=== PATIENT | female | born 1930 | race Two or more races ===

== ENCOUNTER 2020-02-08 18:24 | Inpatient (IN) | payer MEDICARE, OTHER ==
[~2020-02-08] VITALS: Ht 167.6 cm; Wt 74.8 kg
[2020-02-09 00:15] VITALS: BP_SYST 182; BP_SYST 184; BP_DIAS 69; BP_DIAS 76
--- NOTE | 2020-02-09 00:30 | NUR ---
transfer fr [facility] ; there she had blood culture done; rocephine 2 gm given IV and Covid 19 came positive; no paper works from "assisted living" reported by [employer];
[2020-02-09] MEDS ORDERED: ONDANSETRON 4 MG/2 ML VIAL IV PRN (01:15)
[2020-02-09] MEDS ORDERED: ACETAMINOPHEN 650 MG SUPP.RECT RC PRN (01:15)
--- NOTE | 2020-02-09 01:28 | NUR ---
left message at pt's daughter for home meds; a/w call back
[2020-02-09] MEDS: AZITHROMYCIN IV 500 MG in IV DEXTROSE 5% 250 ML IV SCH (02:00)
[2020-02-09] MEDS ORDERED: ALBUTEROL SULFATE 2.5 MG/ 0.5 ML NEBU NEB PRN (02:00)
[2020-02-09] MEDS ORDERED: AZITHROMYCIN 500 MG VIAL IV ONE (02:12)
[2020-02-09] MEDS: CLONIDINE HCL 0.1 MG TABLET PO PRN ×2 (02:30→06:01)
[2020-02-09] MEDS ORDERED: POTASSIUM CHLORIDE 10 MEQ TAB.PRT.SR ONE (02:55)
[2020-02-09] MEDS ORDERED: POTASSIUM CHLORIDE 20 MEQ TAB.PRT.SR ONE (02:56)
[2020-02-09 04:45] VITALS: BP 142/64
[2020-02-09 05:39] LABS: BASOPHILS % (AUTO) 0.3 % (0.0-2.0); EOSINOPHILS % (AUTO) 0.1 % (0.0-7.0); HEMATOCRIT 42.8 % (31.2-41.9); HEMOGLOBIN 14.3 g/dL (10.9-14.3); LYMPHOCYTES % (AUTO) 17.1 % (20.5-51.5); MEAN CORPUSCULAR HEMOGLOBIN 28.8 uug (24.7-32.8); MEAN CORPUSCULAR HGB CONC 34 g/dL (32.3-35.6); MEAN CORPUSCULAR VOLUME 85.8 fL (75.5-95.3); MONOCYTES # (AUTO) 0.6 K/uL (2.0-10.0); MONOCYTES % (AUTO) 10.2 % (0.0-11.0); NEUTROPHILS % (AUTO) 72.3 % (38.5-71.5); PLATELET COUNT (AUTO) 133 K/uL (179-408); RED BLOOD CELL COUNT(AUTO) 4.98 MIL/uL (3.63-4.92); WHITE BLOOD COUNT (AUTO) 5.6 K/uL (3.8-11.8)
[2020-02-09 05:42] LABS: BILIRUBIN,TOTAL 0.8 mg/dL (0.2-1.0); CREATININE 1.1 mg/dL (0.6-1.3); POTASSIUM 3.2 mmol/L (3.5-5.1); TOTAL PROTEIN, SERUM 7.5 g/dL (6.4-8.2)
[2020-02-09] MEDS ORDERED: POTASSIUM CHLORIDE 20 MEQ TAB.PRT.SR PO ONE (06:15)
--- NOTE | 2020-02-09 07:28 | NUR ---
left message again to pts daughter phone for more info; endorsed to Nurse Maritza regarding home meds info.
[2020-02-09] MEDS: DEXAMETHASONE 4 MG TABLET PO SCH (09:31)
[2020-02-09] MEDS: ENOXAPARIN SODIUM 40 MG/0.4 ML DISP.SYRIN SQ SCH (09:32)
--- NOTE | 2020-02-09 10:00 | NUR ---
Pt stopped ABG due to pain, refused to continue, refused ABG..
--- NOTE | 2020-02-09 11:12 | NUR ---
WOUND CARE CONSULT: REVIEWED CHART, NURSING DOCUMENTATION AND PHOTOS WHICH INDICATE SACRAL INTACT DEEP TISSUE INJURY, PRESENT ON ADMISSION. RECOMMENDATIONS MADE FOR SKIN PROTECTION AND WOUND CARE. DISCUSSED WITH NURSING STAFF. MD IN AGREEMENT WITH PLAN OF CARE.
[2020-02-09 12:00] VITALS: BP 102/46
[2020-02-09] MEDS ORDERED: REMDESIVIR (INVESTIGATIONAL) 200 MG in IV NORMAL SALINE 210 ML IV ONE (14:00)
[2020-02-09] MEDS ORDERED: ATOR40TA PO (15:26)
[2020-02-09] MEDS ORDERED: VITA15LO PO (15:26)
[2020-02-09] MEDS ORDERED: DONE10TA44 PO (15:26)
[2020-02-09] MEDS ORDERED: DICL100G16 TP (15:26)
[2020-02-09] MEDS ORDERED: MIRA50TA PO (15:26)
[2020-02-09] MEDS ORDERED: LORA10TA7 PO (15:26)
[2020-02-09] MEDS ORDERED: ESCI10TA55 PO (15:26)
[2020-02-09] MEDS ORDERED: CARB15DR3 OP (15:26)
[2020-02-09] MEDS ORDERED: EZET10TA15 PO (15:26)
[2020-02-09] MEDS ORDERED: LIDO30AD10 TD (15:26)
[2020-02-09] MEDS ORDERED: IBUP-1953 PO (15:26)
[2020-02-09] MEDS ORDERED: TIMO5SOL11 EACHEYE (15:26)
[2020-02-09] MEDS ORDERED: CARV12.52 PO (15:26)
[2020-02-09] MEDS ORDERED: ACET-2154 PO (15:26)
[2020-02-09] MEDS ORDERED: OXYB10TA30 PO (15:26)
[2020-02-09] MEDS ORDERED: [UNRECOGNIZED DRUG - CODE] PO (15:26)
[2020-02-09] MEDS ORDERED: ASPI81TA31 PO (15:26)
[2020-02-09] MEDS ORDERED: PANT40TA2 PO (15:26)
[2020-02-09 16:00] VITALS: BP 104/54
[2020-02-09 16:53] VITALS: BP 117/60
--- NOTE | 2020-02-09 20:00 | NUR ---
RECEIVED PT. AWAKE, VERBALLY RESPONSIVE W/ PERIODS OF CONFUSION. ON O2 @ 4LNC W/ O2 SAT OF 94%. HEP LOCK INTACT & PATENT ON RFA. NOT IN ANY DISTRESS.
[2020-02-09 20:18] VITALS: BP 107/62
--- NOTE | 2020-02-09 22:00 | NUR ---
HS CARE DONE. KEPT HOB ELEVATED AFTER REPOSITIONED.
[2020-02-10 00:12] VITALS: BP 123/61
[2020-02-10] MEDS: AZITHROMYCIN IV 500 MG in IV DEXTROSE 5% 250 ML IV SCH (01:26)
--- NOTE | 2020-02-10 06:00 | NUR ---
KEPT PT DRY & CLEAN. REPOSITIONED.
[2020-02-10 06:18] VITALS: BP 145/69
[2020-02-10 06:47] LABS: BASOPHILS % (AUTO) 0.1 % (0.0-2.0); HEMATOCRIT 39.6 % (31.2-41.9); HEMOGLOBIN 13.2 g/dL (10.9-14.3); LYMPHOCYTES # (AUTO) 0.9 K/uL (20.0-40.0); LYMPHOCYTES % (AUTO) 15.4 % (20.5-51.5); MEAN CORPUSCULAR HEMOGLOBIN 28.3 uug (24.7-32.8); MEAN CORPUSCULAR HGB CONC 33 g/dL (32.3-35.6); MONOCYTES # (AUTO) 0.7 K/uL (2.0-10.0); MONOCYTES % (AUTO) 11.3 % (0.0-11.0); NEUTROPHILS # (AUTO) 4.5 K/uL (1.8-8.9); NEUTROPHILS % (AUTO) 73.2 % (38.5-71.5); PLATELET COUNT (AUTO) 145 K/uL (179-408); RED BLOOD CELL COUNT(AUTO) 4.66 MIL/uL (3.63-4.92); WHITE BLOOD COUNT (AUTO) 6.1 K/uL (3.8-11.8)
[2020-02-10 07:16] LABS: BILIRUBIN,DIRECT 0.2 mg/dL (0.0-0.2); BILIRUBIN,TOTAL 0.5 mg/dL (0.2-1.0); CREATININE 1.2 mg/dL (0.6-1.3); MAGNESIUM 2.2 mg/dL (1.8-2.4); PHOSPHOROUS 3.6 mg/dL (2.5-4.9); POTASSIUM 3.5 mmol/L (3.5-5.1); TOTAL PROTEIN, SERUM 6.5 g/dL (6.4-8.2)
[2020-02-10] MEDS: DEXAMETHASONE 4 MG TABLET PO SCH (08:27)
[2020-02-10] MEDS: ENOXAPARIN SODIUM 40 MG/0.4 ML DISP.SYRIN SQ SCH (08:28)
[2020-02-10 08:41] VITALS: BP 140/54
--- NOTE | 2020-02-10 09:42 | NUR ---
Pt awake and alert with periods of confusion. On 4L O2 and saturation at 95%. Pt was made comfortable in bed and is not in distress. Call light within reach. Will continue to monitor.
[2020-02-10 14:20] VITALS: BP 141/61
[2020-02-10] MEDS: REMDESIVIR (INVESTIGATIONAL) 100 MG in IV NORMAL SALINE 230 ML IV SCH (14:20)
--- NOTE | 2020-02-10 15:20 | NUR ---
Remdesevir completed. No ASE noted. Afebrile. No episode of Hypotension. Will continue to monitor.
--- NOTE | 2020-02-10 18:07 | NUR ---
Pt is stable and lying in bed with no complaints of pain. Pt has periods of confusion. She is on oxygen at 4L via nasal canula with saturation at 95%. Remdesivir IV was given and completed, no adverse reaction reaction was had -- blood pressure was WNL and she was afebrile. Pt made comfortable, call light within reach, and not in distress. Will endorse to oncoming nurse.
[2020-02-10 20:00] VITALS: BP 123/59
[2020-02-10] MEDS: ACETAMINOPHEN 325 MG TABLET PO PRN (20:47)
[2020-02-11] VITALS (9 sets, daily range): BP systolic 103–162; BP diastolic 51–80
[2020-02-11] MEDS: AZITHROMYCIN IV 500 MG in IV DEXTROSE 5% 250 ML IV SCH (01:42)
--- NOTE | 2020-02-11 06:11 | NUR ---
PT SLEPT INTERMITTENTLY. PT SHOWS NO SIGNS OF ACUTE DISTRESS. IV INTACT. PT GIVEN TYLENOL AT 2046H FOR PT IS MOANING AND STATING SHE'S IN PAIN. . PT CONDITIONED IMPROVED AFTER AN HOUR. PT AFEBRILE. PT TURNED AND REPOSITIONED Q2H. PRESCRIBED MEDICATION GIVEN AND PT TOLERATED IT WELL. PT REDIRECTABLE. PT FORGETFUL BUT PLEASANT. SAFETY AND COMFORT PROVIDED. ALL NEEDS ARE MET. WILL ENDORSE TO INCOMING NURSE FOR CONTINUITY OF CARE.
--- NOTE | 2020-02-11 08:15 | NUR ---
Pt in bed awake AOx1, O2 decreased to 3L from 4L, saturation of 94-95% with no SOB or distress at this time, coughing out scant amount of thick yellow sputum. On tele SB. IV on right FA 20g flushed and patent. Bed locked in lowest position with siderails 2x up. DVT pumps in place. Call light and phone within reach
[2020-02-11] MEDS: DEXAMETHASONE 4 MG TABLET PO SCH (09:27)
[2020-02-11] MEDS: ENOXAPARIN SODIUM 40 MG/0.4 ML DISP.SYRIN SQ SCH (09:28)
[2020-02-11 09:58] LABS: BASOPHILS % (AUTO) 0.1 % (0.0-2.0); HEMATOCRIT 40.8 % (31.2-41.9); HEMOGLOBIN 13.8 g/dL (10.9-14.3); LYMPHOCYTES % (AUTO) 14.9 % (20.5-51.5); MEAN CORPUSCULAR HEMOGLOBIN 28.7 uug (24.7-32.8); MEAN CORPUSCULAR HGB CONC 34 g/dL (32.3-35.6); MEAN CORPUSCULAR VOLUME 84.7 fL (75.5-95.3); MONOCYTES # (AUTO) 0.4 K/uL (2.0-10.0); MONOCYTES % (AUTO) 5.4 % (0.0-11.0); NEUTROPHILS # (AUTO) 5.3 K/uL (1.8-8.9); NEUTROPHILS % (AUTO) 79.6 % (38.5-71.5); PLATELET COUNT (AUTO) 165 K/uL (179-408); RED BLOOD CELL COUNT(AUTO) 4.82 MIL/uL (3.63-4.92); WHITE BLOOD COUNT (AUTO) 6.6 K/uL (3.8-11.8)
[2020-02-11 10:30] LABS: BILIRUBIN,DIRECT 0.2 mg/dL (0.0-0.2); BILIRUBIN,TOTAL 0.4 mg/dL (0.2-1.0); CREATININE 1.1 mg/dL (0.6-1.3); POTASSIUM 3.1 mmol/L (3.5-5.1); TOTAL PROTEIN, SERUM 6.5 g/dL (6.4-8.2)
[2020-02-11 10:34] LABS: MAGNESIUM 2.1 mg/dL (1.8-2.4)
[2020-02-11] MEDS: REMDESIVIR (INVESTIGATIONAL) 100 MG in IV NORMAL SALINE 230 ML IV SCH (13:49)
--- NOTE | 2020-02-11 15:15 | NUR ---
Remdesevir completed. No side effect noted, afebrile. No episode of Hypotension. Will continue to monitor.
[2020-02-11] MEDS: AZITHROMYCIN 250 MG TABLET PO SCH (20:24)
[2020-02-11] MEDS: CLONIDINE HCL 0.1 MG TABLET PO PRN (21:41)
[2020-02-12 00:50] VITALS: BP 165/71
[2020-02-12] MEDS: CLONIDINE HCL 0.1 MG TABLET PO PRN (05:52)
--- NOTE | 2020-02-12 06:00 | NUR ---
Pt slept throughout the night, would seldom yell that "she needs to go back to her room." Reoriented patient. On O2 @ 3L with no SOB or distress at this time. On tele SB running low to 44 when asleep. Aspiration and safety precaution maintained. No other complaints at this time
[2020-02-12 07:03] VITALS: BP 151/80
[2020-02-12 07:03] LABS: BASOPHILS % (AUTO) 0.1 % (0.0-2.0); HEMATOCRIT 39.2 % (31.2-41.9); HEMOGLOBIN 13.3 g/dL (10.9-14.3); LYMPHOCYTES # (AUTO) 0.8 K/uL (20.0-40.0); LYMPHOCYTES % (AUTO) 11.4 % (20.5-51.5); MEAN CORPUSCULAR HEMOGLOBIN 28.6 uug (24.7-32.8); MEAN CORPUSCULAR HGB CONC 34 g/dL (32.3-35.6); MEAN CORPUSCULAR VOLUME 84.4 fL (75.5-95.3); MONOCYTES # (AUTO) 0.8 K/uL (2.0-10.0); MONOCYTES % (AUTO) 10.9 % (0.0-11.0); NEUTROPHILS # (AUTO) 5.7 K/uL (1.8-8.9); NEUTROPHILS % (AUTO) 77.6 % (38.5-71.5); PLATELET COUNT (AUTO) 181 K/uL (179-408); RED BLOOD CELL COUNT(AUTO) 4.65 MIL/uL (3.63-4.92); WHITE BLOOD COUNT (AUTO) 7.3 K/uL (3.8-11.8)
[2020-02-12 07:19] LABS: BILIRUBIN,DIRECT 0.1 mg/dL (0.0-0.2); BILIRUBIN,TOTAL 0.4 mg/dL (0.2-1.0); CREATININE 0.8 mg/dL (0.6-1.3); MAGNESIUM 2.1 mg/dL (1.8-2.4); PHOSPHOROUS 2.9 mg/dL (2.5-4.9); POTASSIUM 3.3 mmol/L (3.5-5.1); TOTAL PROTEIN, SERUM 5.9 g/dL (6.4-8.2)
--- NOTE | 2020-02-12 08:00 | NUR ---
RECEIVED PATIENT AWAKE, ALERT AND ORIENTED TO SELF, ABLE TO FOLLOW COMMAND. ON 3 L O2, SATURATION WNL. SINUS SLICK ON MONITOR, ASYMPTOMATIC. IV ON RIGHT FA 20 G TKO, FLUSHING AND PATENT. NOTED ORDER FOR BLOOD CULTURE RESULT FROM [facility], CALLED [place] TO FOLLOW UP, RELEASE OF INFORMATION OFFICE IS CLOSE - WILL ENDORSE TO NEXT SHIFT TO FOLLOW UP TOMORROW. Addendum: 02/12/20 at 1356 by RUBEN CONTRERAS RN [facility] RELEASE OF MEDICAL INFORMATION OFFICE NUMBER: [phone]
[2020-02-12] MEDS ORDERED: POTASSIUM CHLORIDE 20 MEQ TAB.PRT.SR PO ONE (09:15)
[2020-02-12] MEDS: DEXAMETHASONE 4 MG TABLET PO SCH (09:51)
[2020-02-12] MEDS: ENOXAPARIN SODIUM 40 MG/0.4 ML DISP.SYRIN SQ SCH (09:53)
[2020-02-12] MEDS: ACETAMINOPHEN 325 MG TABLET PO PRN (09:56)
[2020-02-12 11:20] VITALS: BP 138/60
[2020-02-12] MEDS ORDERED: GUAIFENESIN SUGAR FREE 100 MG/5 ML UDC PO PRN (12:30)
[2020-02-12] MEDS ORDERED: IBUPROFEN 400 MG TABLET PO PRN (12:30)
[2020-02-12] MEDS ORDERED: [UNRECOGNIZED DRUG - OTHER] OP PRN (13:00)
[2020-02-12] MEDS: REMDESIVIR (INVESTIGATIONAL) 100 MG in IV NORMAL SALINE 230 ML IV SCH (13:18)
--- NOTE | 2020-02-12 14:00 | NUR ---
SEEN BY DR DIAZ AND DR ACOSTA FOR FOLLOW-UP SEE NOTES
[2020-02-12 15:20] VITALS: BP 140/73
--- NOTE | 2020-02-12 18:07 | NUR ---
CONTINUE WITH REMDESIVIR ORDERED PATIENT TOLERATED WELL. BLOOD PRESSURE AND HEART RATE CLOSELY MONITORED. SR/SB ON MONITOR
--- NOTE | 2020-02-12 20:00 | NUR ---
Patient resting in bed comfortably with HOB elevated on O2 inhalation of 3LPM via NC.On tele monitor.ALert with period of confusion.Re-orientation rendered. Denies SOB,no s/s of distress .IV site on Right forearm 20g intact.Compliant with medications.Proper PPE strictly observe for covid.Call light and belongings with in reach.continue safety measures.Will continue to monitor.
[2020-02-12] MEDS: AZITHROMYCIN 250 MG TABLET PO SCH (20:41)
[2020-02-12] MEDS: OXYBUTYNIN XL 5 MG TABSR PO SCH (20:42)
[2020-02-12] MEDS: ESCITALOPRAM OXALATE 10 MG TABLET PO SCH (20:42)
[2020-02-12] MEDS: ATORVASTATIN 40 MG TABLET PO SCH (20:42)
[2020-02-12] MEDS: CARVEDILOL 12.5 MG TABLET PO SCH (20:51)
[2020-02-13 07:14] LABS: BASOPHILS % (AUTO) 0.1 % (0.0-2.0); HEMATOCRIT 39.6 % (31.2-41.9); HEMOGLOBIN 13.2 g/dL (10.9-14.3); LYMPHOCYTES # (AUTO) 0.8 K/uL (20.0-40.0); LYMPHOCYTES % (AUTO) 14.6 % (20.5-51.5); MEAN CORPUSCULAR HEMOGLOBIN 28.4 uug (24.7-32.8); MEAN CORPUSCULAR HGB CONC 34 g/dL (32.3-35.6); MONOCYTES # (AUTO) 0.8 K/uL (2.0-10.0); MONOCYTES % (AUTO) 13.6 % (0.0-11.0); NEUTROPHILS # (AUTO) 4.1 K/uL (1.8-8.9); NEUTROPHILS % (AUTO) 71.7 % (38.5-71.5); PLATELET COUNT (AUTO) 181 K/uL (179-408); RED BLOOD CELL COUNT(AUTO) 4.66 MIL/uL (3.63-4.92); WHITE BLOOD COUNT (AUTO) 5.7 K/uL (3.8-11.8)
[2020-02-13 07:31] LABS: BILIRUBIN,DIRECT 0.1 mg/dL (0.0-0.2); BILIRUBIN,TOTAL 0.5 mg/dL (0.2-1.0); CREATININE 0.9 mg/dL (0.6-1.3); MAGNESIUM 2.1 mg/dL (1.8-2.4); PHOSPHOROUS 3.2 mg/dL (2.5-4.9); POTASSIUM 3.9 mmol/L (3.5-5.1)
[2020-02-13] MEDS: EZETIMIBE 10 MG TABLET PO SCH (08:36)
[2020-02-13] MEDS: ASPIRIN 81 MG TAB.CHEW PO SCH (08:36)
[2020-02-13] MEDS: DONEPEZIL 10 MG TABLET PO SCH (08:36)
[2020-02-13] MEDS: ESCITALOPRAM OXALATE 10 MG TABLET PO SCH ×2 (08:36→20:45)
[2020-02-13] MEDS: CARVEDILOL 12.5 MG TABLET PO SCH ×2 (08:37→21:38)
[2020-02-13] MEDS: LORATADINE 10 MG TABLET PO SCH (08:37)
[2020-02-13] MEDS: DEXAMETHASONE 4 MG TABLET PO SCH (08:38)
[2020-02-13] MEDS: LIDOCAINE 5% PATCH TD SCH (08:38)
[2020-02-13] MEDS: TIMOLOL MALEATE XE 0.5% OPHT 5 ML BOTTLE EACHEYE SCH (08:38)
[2020-02-13] MEDS: ENOXAPARIN SODIUM 40 MG/0.4 ML DISP.SYRIN SQ SCH (08:40)
[2020-02-13] MEDS: PANTOPRAZOLE SODIUM 40 MG TABLET.DR PO SCH (08:47)
[2020-02-13 08:48] VITALS: BP 160/80
[2020-02-13] MEDS ORDERED: Medication Not On Formulary EA (Mirabegron (Myrbetriq) 50 MG) PO SCH (09:00)
--- NOTE | 2020-02-13 09:49 | NUR ---
PATIENT SEEN AND EXAMINED BY DR OSHEA WITH NEW ORDERS AND NOTED
[2020-02-13 12:38] VITALS: BP 124/53
[2020-02-13] MEDS: REMDESIVIR (INVESTIGATIONAL) 100 MG in IV NORMAL SALINE 230 ML IV SCH (13:55)
--- NOTE | 2020-02-13 13:55 | NUR ---
REMAIN ON REZEMDEVIR ORDERED WITH NO ADVERSE EFFECTS AT THIS TIME.IV SITE ON RIGHT FOREARM INFILTERATED RESTARTED TO HER WRIST GAUGE 20 WITH ONE ATTEMPT PATIENT IS SLEEPING ON AND OFF ALERT WHEN AWAKE BUT IS FORGETFUL
--- NOTE | 2020-02-13 14:17 | NUR ---
CALL RECEIVED FROM PATIENTS DAUGHTER STATED THAT PQATIENT WAS SUPPOSED TO GET A PHYSICAL THERAPY EVAL TODAY BUT I CHECKED SHE HAS NO ORDERED SO THE PROVIDER WAS NOTIFIED WITH ORDER AT THIS TIME.
--- NOTE | 2020-02-13 15:01 | NUR ---
REMDESIVIR COMPLETED ORDERED WITH NO ADVERSE EFFECT NOTED AT THIS TIME WILL CONTINUE TO OBSERVE.
[2020-02-13 15:47] VITALS: BP 147/63
[2020-02-13 20:16] VITALS: BP 104/68
[2020-02-13] MEDS: OXYBUTYNIN XL 5 MG TABSR PO SCH (20:44)
[2020-02-13] MEDS: ATORVASTATIN 40 MG TABLET PO SCH (20:44)
[2020-02-14 00:30] VITALS: BP 110/68
[2020-02-14 04:51] VITALS: BP 159/92
[2020-02-14] MEDS: CLONIDINE HCL 0.1 MG TABLET PO PRN (06:13)
--- NOTE | 2020-02-14 06:19 | NUR ---
Patient slept well with period of confusion .Denies SOB or pain.Compliant with medication.Continue on O2 inhalation at 3 LPM via NC.Change and repositioned patient .PPE strictly observed for covid.All needs anticipated and met accordingly.
--- NOTE | 2020-02-14 07:30 | NUR ---
Received patient resting in bed with no sign of distress noted. Patient reports no pain at this time. IV is in left wrist 20 gauge hep lock. Mepilex noted on sacral area. Patient has been sinus sharmin on monitor. Safety measures are in place, with call light and belongings within reach. Will continue to monitor.
[2020-02-14 07:52] LABS: BASOPHILS % (AUTO) 0.3 % (0.0-2.0); HEMATOCRIT 39.5 % (31.2-41.9); HEMOGLOBIN 13.2 g/dL (10.9-14.3); LYMPHOCYTES # (AUTO) 0.7 K/uL (20.0-40.0); LYMPHOCYTES % (AUTO) 8.2 % (20.5-51.5); MEAN CORPUSCULAR HEMOGLOBIN 28.4 uug (24.7-32.8); MEAN CORPUSCULAR HGB CONC 33 g/dL (32.3-35.6); MEAN CORPUSCULAR VOLUME 85.1 fL (75.5-95.3); MONOCYTES # (AUTO) 0.7 K/uL (2.0-10.0); MONOCYTES % (AUTO) 9.3 % (0.0-11.0); NEUTROPHILS # (AUTO) 6.5 K/uL (1.8-8.9); NEUTROPHILS % (AUTO) 82.2 % (38.5-71.5); PLATELET COUNT (AUTO) 216 K/uL (179-408); RED BLOOD CELL COUNT(AUTO) 4.64 MIL/uL (3.63-4.92); WHITE BLOOD COUNT (AUTO) 7.9 K/uL (3.8-11.8)
[2020-02-14 08:17] LABS: BILIRUBIN,DIRECT 0.2 mg/dL (0.0-0.2); BILIRUBIN,TOTAL 0.5 mg/dL (0.2-1.0); CREATININE 0.9 mg/dL (0.6-1.3); MAGNESIUM 2.2 mg/dL (1.8-2.4); PHOSPHOROUS 3.4 mg/dL (2.5-4.9)
[2020-02-14 08:20] VITALS: BP 176/82
[2020-02-14] MEDS: ASPIRIN 81 MG TAB.CHEW PO SCH ×2 (08:42→09:00)
[2020-02-14] MEDS: EZETIMIBE 10 MG TABLET PO SCH ×2 (08:42→09:00)
[2020-02-14] MEDS: LORATADINE 10 MG TABLET PO SCH ×2 (08:42→09:00)
[2020-02-14] MEDS: LIDOCAINE 5% PATCH TD SCH (08:42)
[2020-02-14] MEDS: DONEPEZIL 10 MG TABLET PO SCH ×2 (08:42→09:00)
[2020-02-14] MEDS: PANTOPRAZOLE SODIUM 40 MG TABLET.DR PO SCH ×2 (08:42→09:00)
[2020-02-14] MEDS: DEXAMETHASONE 4 MG TABLET PO SCH (08:43)
[2020-02-14] MEDS: CARVEDILOL 12.5 MG TABLET PO SCH ×3 (08:44→20:50)
[2020-02-14] MEDS: ENOXAPARIN SODIUM 40 MG/0.4 ML DISP.SYRIN SQ SCH (08:45)
[2020-02-14] MEDS: TIMOLOL MALEATE XE 0.5% OPHT 5 ML BOTTLE EACHEYE SCH ×2 (08:45→09:00)
[2020-02-14] MEDS: ESCITALOPRAM OXALATE 10 MG TABLET PO SCH ×3 (08:48→20:51)
[2020-02-14 11:20] VITALS: BP 125/60
--- NOTE | 2020-02-14 12:59 | NUR ---
WOUND CARE FOLLOW UP: REVIEWED CHART, NURSING DOCUMENTATION AND NEW PHOTO WHICH INDICATES SACRAL DEEP TISSUE INJURY NOW IN EVOLUTION, PRESENT ON ADMISSION. SPOKE WITH NURSING STAFF. RECOMMENDATIONS MADE AND DISCUSSED WITH NURSING STAFF FOR WOUND CARE AND SKIN PROTECTION. MD IN AGREEMENT WITH PLAN OF CARE.
--- NOTE | 2020-02-14 13:00 | NUR ---
Spoke with wound care nurse Whit, took new picture of wound and placed in chart. New orders to clean area, pat dry and apply oil emulsion dressing and then cover with foam Mepilex. Will continue to monitor.
[2020-02-14 15:04] VITALS: BP 125/50
--- NOTE | 2020-02-14 16:36 | NUR ---
Spoke with Emory from pharmacy he says continued home medication but the pharmacy doesn't have it in stock. He wants to know if we can contact the family to see if they can provide it. Will continue to monitor.
--- NOTE | 2020-02-14 18:32 | NUR ---
Patient is resting in bed, all medications given as ordered. No sign of distress noted at this time. Will endorse to the oncoming nurse the new orders for dressing and to follow up with family about the medications.
--- NOTE | 2020-02-14 19:30 | NUR ---
RECEIVED PT AWAKE, ALERT AND ORIENTEDX2. PT IN NO ACUTE DISTRESS. IV INTACT.SAFETY AND COMFORT PROVIDED. WILL CONTINUE TO MONITOR.
[2020-02-14 20:07] VITALS: BP 120/60
[2020-02-14] MEDS: OXYBUTYNIN XL 5 MG TABSR PO SCH (20:49)
[2020-02-14] MEDS: ATORVASTATIN 40 MG TABLET PO SCH (20:51)
[2020-02-15 00:24] VITALS: BP 115/68
[2020-02-15 04:00] VITALS: BP 130/58
--- NOTE | 2020-02-15 04:35 | NUR ---
RECEIVED PT AWAKE, ALERT AND ORIENTEDX2. PT IN NO ACUTE DISTRESS. IV INTACT.SAFETY AND COMFORT PROVIDED. WILL CONTINUE TO MONITOR. Addendum: 02/15/20 at 0508 by BARBARA PARKINSON RN WRONG TIME DOCUMENTATION SHOULD BE 1930H OF 02/14/20.
--- NOTE | 2020-02-15 06:18 | NUR ---
PT SLEPT INTERMITTENTLY. PT IN NO ACUTE DISTRESS. IV INTACT. PRESCRIBED MEDICATION GIVEN AND PT TOLERATED IT WELL. HER DAUGHTER CALLED AND TALKED WITH THE PT. STAFF ASSISTED THE PT WITH HER NEEDS AND SETTING UP THE IPAD AND IPHONE. PT TURNED AND REPOSITIONED Q2H. DRESSING CHANGED ON THE SACRUM. SAFETY AND COMFORT PROVIDED. ALL NEEDS ARE MET. WILL ENDORSE TO INCOMING NURSE FOR CONTINUITY OF CARE.
[2020-02-15 07:21] LABS: CREATININE 0.9 mg/dL (0.6-1.3); POTASSIUM 4.4 mmol/L (3.5-5.1)
[2020-02-15 07:42] LABS: BASOPHILS % (AUTO) 0.1 % (0.0-2.0); HEMATOCRIT 39.9 % (31.2-41.9); HEMOGLOBIN 13.4 g/dL (10.9-14.3); LYMPHOCYTES # (AUTO) 0.6 K/uL (20.0-40.0); LYMPHOCYTES % (AUTO) 6.5 % (20.5-51.5); MEAN CORPUSCULAR HEMOGLOBIN 28.4 uug (24.7-32.8); MEAN CORPUSCULAR HGB CONC 34 g/dL (32.3-35.6); MEAN CORPUSCULAR VOLUME 84.5 fL (75.5-95.3); MONOCYTES # (AUTO) 0.9 K/uL (2.0-10.0); MONOCYTES % (AUTO) 9.3 % (0.0-11.0); NEUTROPHILS # (AUTO) 8.3 K/uL (1.8-8.9); NEUTROPHILS % (AUTO) 84.1 % (38.5-71.5); PLATELET COUNT (AUTO) 249 K/uL (179-408); RED BLOOD CELL COUNT(AUTO) 4.72 MIL/uL (3.63-4.92); WHITE BLOOD COUNT (AUTO) 9.9 K/uL (3.8-11.8)
[2020-02-15] MEDS: ZINC SULFATE 220 MG CAPSULE PO SCH (08:46)
[2020-02-15] MEDS: ESCITALOPRAM OXALATE 10 MG TABLET PO SCH ×2 (08:46→21:02)
[2020-02-15] MEDS: LORATADINE 10 MG TABLET PO SCH (08:47)
[2020-02-15] MEDS: PANTOPRAZOLE SODIUM 40 MG TABLET.DR PO SCH (08:47)
[2020-02-15] MEDS: CARVEDILOL 12.5 MG TABLET PO SCH ×2 (08:47→21:00)
[2020-02-15] MEDS: ASCORBIC ACID 500 MG TABLET PO SCH (08:47)
[2020-02-15] MEDS: EZETIMIBE 10 MG TABLET PO SCH (08:47)
[2020-02-15] MEDS: DONEPEZIL 10 MG TABLET PO SCH (08:47)
[2020-02-15] MEDS: ASPIRIN 81 MG TAB.CHEW PO SCH (08:47)
[2020-02-15] MEDS: CHOLECALCIFEROL 400 UNITS TABLET PO SCH (08:48)
[2020-02-15] MEDS: DEXAMETHASONE 4 MG TABLET PO SCH (08:48)
[2020-02-15] MEDS: LIDOCAINE 5% PATCH TD SCH (08:48)
[2020-02-15] MEDS: ENOXAPARIN SODIUM 40 MG/0.4 ML DISP.SYRIN SQ SCH (08:50)
[2020-02-15] MEDS: TIMOLOL MALEATE XE 0.5% OPHT 5 ML BOTTLE EACHEYE SCH (08:50)
[2020-02-15 10:49] VITALS: BP 103/87
[2020-02-15] MEDS ORDERED: METH4TAB21 PO (12:03)
--- NOTE | 2020-02-15 13:52 | NUR ---
Patient awake, AOx2 with periods of confusion. Compliant with medications. Patient will be discharge to [facility] today as per child welfare caseworker and [employer] Aneesh. Patient seen and examined by MD Rollins with no new order. Patient continue with oxygen via nasal cannula at 2-3LPM with oxygen saturation at 95%. not in distress. will continue monitor
[2020-02-15 15:51] VITALS: BP 112/51
--- NOTE | 2020-02-15 18:15 | NUR ---
Patient [facility] daughter requested. ISAIAS Melendrez and MD Rollins aware.
[2020-02-15 20:14] VITALS: BP 132/80
[2020-02-15] MEDS: ATORVASTATIN 40 MG TABLET PO SCH (21:02)
[2020-02-15] MEDS: OXYBUTYNIN XL 5 MG TABSR PO SCH (21:02)
[2020-02-16 00:08] VITALS: BP 152/74
[2020-02-16 04:15] VITALS: BP 212/86
[2020-02-16] MEDS: CLONIDINE HCL 0.1 MG TABLET PO PRN (04:52)
[2020-02-16] MEDS: ACETAMINOPHEN 325 MG TABLET PO PRN (04:52)
[2020-02-16 06:30] VITALS: BP 123/72
--- NOTE | 2020-02-16 07:30 | NUR ---
Patient in bed, awake, and verbally responsive. On Oxygen at 3L via nasal canula, sat 95%. No complain of Pain or discomfort. Proper PPE strictly Observed for covid 19 (+). Kept clean and comfortable. Will continue to monitor.
[2020-02-16] MEDS: ASPIRIN 81 MG TAB.CHEW PO SCH (08:46)
[2020-02-16] MEDS: EZETIMIBE 10 MG TABLET PO SCH (08:46)
[2020-02-16] MEDS: CHOLECALCIFEROL 400 UNITS TABLET PO SCH (08:46)
[2020-02-16] MEDS: ZINC SULFATE 220 MG CAPSULE PO SCH (08:46)
[2020-02-16] MEDS: LORATADINE 10 MG TABLET PO SCH (08:46)
[2020-02-16] MEDS: ESCITALOPRAM OXALATE 10 MG TABLET PO SCH (08:46)
[2020-02-16] MEDS: DEXAMETHASONE 4 MG TABLET PO SCH (08:46)
[2020-02-16] MEDS: ASCORBIC ACID 500 MG TABLET PO SCH (08:46)
[2020-02-16] MEDS: PANTOPRAZOLE SODIUM 40 MG TABLET.DR PO SCH (08:46)
[2020-02-16] MEDS: LIDOCAINE 5% PATCH TD SCH (08:48)
[2020-02-16] MEDS: TIMOLOL MALEATE XE 0.5% OPHT 5 ML BOTTLE EACHEYE SCH (08:55)
[2020-02-16] MEDS: CARVEDILOL 12.5 MG TABLET PO SCH (09:00)
[2020-02-16] MEDS: ENOXAPARIN SODIUM 40 MG/0.4 ML DISP.SYRIN SQ SCH (09:21)
[2020-02-16] MEDS: DONEPEZIL 10 MG TABLET PO SCH (09:38)
--- NOTE | 2020-02-16 11:30 | NUR ---
Patient in bed,awake. On Oxygen at 3L via Nasal canula, sat 95-96%. No complain of Pain or discomfort. Patient with order to Be discharge today at [facility]. called and gave report to Mann PICKARD. Discharge Instructions given to patient and receiving Nurse. All belongings was checked and sent with patient. Removed IV site, wrist band and classroom monitor. patient was picked up by 3 EMT in stable condition.
== END 2020-02-16 11:30 | DRG 177 ==
LOC: TELE3 23:20
PROVIDERS: ADMIT Student in an Organized Health Care Education/Training Program; ATTEND Nurse Practitioner Acute Care
DX: U07.1 COVID-19 (principal); J12.89 Other viral pneumonia; J96.01 Acute respiratory failure with hypoxia; G93.41 Metabolic encephalopathy; E44.0 Moderate protein-calorie malnutrition; E87.6 Hypokalemia; R19.7 Diarrhea, unspecified; I10 Essential (primary) hypertension; E66.3 Overweight; Z68.26 Body mass index [BMI] 26.0-26.9, adult; E88.09 Other disorders of plasma-protein metabolism, not elsewhere classified; D69.6 Thrombocytopenia, unspecified
CPT/HCPCS: 36415; 71045; 83605; 83615; 83735; 84100; 85025; 85610; 85730; 86140; A4663; G0378; J0456; J1650; J3490; J3590; J7030; J7050; J7060; J8540; Q0144

== ENCOUNTER 2020-02-22 11:10 | Inpatient (IN) | payer MEDICARE, OTHER ==
[~2020-02-22] VITALS: Ht 167.6 cm; Wt 82.1 kg
[~2020-02-22 11:10] MED LIST: ACET-2154 PO; ASPI81TA31 PO; ATOR40TA PO; CARB15DR3 OP; CARV12.52 PO; DICL100G16 TP; DONE10TA44 PO; ESCI10TA55 PO; EZET10TA15 PO; IBUP-1953 PO; LIDO30AD10 TD; LORA10TA7 PO; METH4TAB21 PO; MIRA50TA PO; OXYB10TA30 PO; PANT40TA2 PO; TIMO5SOL11 EACHEYE; VITA15LO PO; [UNRECOGNIZED DRUG - CODE] PO
--- NOTE | 2020-02-22 11:20 | NUR ---
Dr Osborn at the bedside for MSE.
[2020-02-22 11:52] LABS: BASOPHILS # (AUTO) 0.1 K/uL (0.0-8.0); BASOPHILS % (AUTO) 0.5 % (0.0-2.0); EOSINOPHILS % (AUTO) 0.1 % (0.0-7.0); HEMATOCRIT 47.2 % (31.2-41.9); HEMOGLOBIN 15.9 g/dL (10.9-14.3); LYMPHOCYTES # (AUTO) 0.7 K/uL (20.0-40.0); LYMPHOCYTES % (AUTO) 3.2 % (20.5-51.5); MEAN CORPUSCULAR HEMOGLOBIN 28.3 uug (24.7-32.8); MEAN CORPUSCULAR HGB CONC 34 g/dL (32.3-35.6); MEAN CORPUSCULAR VOLUME 83.8 fL (75.5-95.3); MONOCYTES # (AUTO) 1.2 K/uL (2.0-10.0); MONOCYTES % (AUTO) 5.2 % (0.0-11.0); NEUTROPHILS # (AUTO) 20.8 K/uL (1.8-8.9); PLATELET COUNT (AUTO) 335 K/uL (179-408); RED BLOOD CELL COUNT(AUTO) 5.63 MIL/uL (3.63-4.92); WHITE BLOOD COUNT (AUTO) 22.8 K/uL (3.8-11.8)
[2020-02-22 12:13] LABS: CREATININE 0.8 mg/dL (0.6-1.3); POTASSIUM 4.1 mmol/L (3.5-5.1)
[2020-02-22] MEDS ORDERED: FUROSEMIDE 20 MG/2 ML VIAL IV ONE ×2 (12:30→17:00)
[2020-02-22] MEDS ORDERED: ALBUTEROL SULFATE 8 GM HFA.AER.AD IH PRN (12:30)
[2020-02-22] MEDS ORDERED: MEROPENEM 1,000 MG in IV NORMAL SALINE 100 ML IV ONE (12:30)
[2020-02-22 12:31] LABS: BILIRUBIN,TOTAL 0.9 mg/dL (0.2-1.0); TOTAL PROTEIN, SERUM 7.6 g/dL (6.4-8.2)
[2020-02-22] MEDS ORDERED: FUROSEMIDE 20 MG/2 ML VIAL ONE ×2 (12:38→16:54)
[2020-02-22] MEDS ORDERED: MEROPENEM 1GM/NS 100ML IVPB **ER PYXIS ONLY IV ONE (12:39)
[2020-02-22] MEDS ORDERED: LORAZEPAM 2 MG/1 ML VIAL IV ONE ×2 (13:00→17:00)
--- NOTE | 2020-02-22 13:06 | NUR ---
Patient is resting comfortably in bed with eyes closed, continue monitoring.
[2020-02-22] MEDS ORDERED: LORAZEPAM 2 MG/1 ML VIAL ONE ×2 (13:13→17:02)
[2020-02-22] MEDS ORDERED: ACET-2154 PO (13:20)
[2020-02-22] MEDS ORDERED: FURO-152 PO (13:20)
[2020-02-22] MEDS ORDERED: MAGN400O6 PO (13:20)
[2020-02-22] MEDS ORDERED: CELE200C PO (13:20)
[2020-02-22] MEDS ORDERED: BISA10SU12 RC (13:20)
[2020-02-22] MEDS ORDERED: NA P133E RC (13:20)
--- NOTE | 2020-02-22 14:09 | NUR ---
Paged Dr Cotto for admit.
[2020-02-22] MEDS ORDERED: ENOXAPARIN SODIUM 80 MG/0.8 ML DISP.SYRIN SQ ONE ×2 (14:15→14:18)
--- NOTE | 2020-02-22 14:22 | NUR ---
Dr Cotto spoke to Dr Osborn for Tele admit.
[2020-02-22] MEDS ORDERED: methylPREDNISolone SOD SUCC 125 MG/2 ML VIAL ONE (16:51)
[2020-02-22] MEDS ORDERED: PANTOPRAZOLE SODIUM 40 MG VIAL ONE (16:51)
[2020-02-22] MEDS ORDERED: ALBUTEROL SULFATE 2.5 MG/3 ML NEBU ONE (16:59)
[2020-02-22] MEDS ORDERED: methylPREDNISolone SOD SUCC 125 MG/2 ML VIAL IV ONE (17:00)
[2020-02-22] MEDS ORDERED: PANTOPRAZOLE SODIUM IV 40 MG in IV DEXTROSE 5% 100 ML IV ONE (17:00)
[2020-02-22] MEDS ORDERED: ALBUTEROL SULFATE 2.5 MG/3 ML NEBU NEB ONE (17:00)
--- NOTE | 2020-02-22 17:06 | NUR ---
LAURA Fletcher spoke to Dr Montelongo for ICU admit.
--- NOTE | 2020-02-22 17:10 | NUR ---
Pt placed on BIPAP by RT. Setting is 12/5 RR 10, FIO2 100%. Pt is tolorating BIPAP well so far.
[2020-02-22 17:11] LABS: ABG BASE EXCESS 1.3 mmol/L; ABG PCO2 46.2 mmHg (35.0-45.0); ABG PH 7.384 (7.350-7.450); ABG SITE LEFT FEMORAL; ABG TOTAL HEMOGLOBIN 16.7 G/dL (12.0-16.0); COHb 1.3 % (0.5-1.5); MetHb 0.3 % (0.0-1.5); O2Hb 91.7 % (94.0-97.0)
--- NOTE | 2020-02-22 17:21 | NUR ---
PT PLACED ON BIPAP WITH SETTINGS IPAP 12, EPAP5, RATE 12, AND FIO2 100%. PT TOLERATING BIPAP FINE WITHOUT DISTRESS.
--- NOTE | 2020-02-22 17:46 | NUR ---
Patient is resting comfortably in bed with eyes closed, BIPAP in place w/ same setting.
--- NOTE | 2020-02-22 17:47 | NUR ---
Dr Rollins in ER to see pt.
[2020-02-22 18:17] LABS: ABG BASE EXCESS -0.2 mmol/L; ABG PCO2 47.9 mmHg (35.0-45.0); ABG PH 7.353 (7.350-7.450); ABG PO2 128.7 mmHg (75.0-100.0); ABG SITE RIGHT RADIAL; ABG TOTAL HEMOGLOBIN 16.8 G/dL (12.0-16.0); MetHb 0.1 % (0.0-1.5); O2Hb 97.2 % (94.0-97.0); VENT MODE BIPAP
--- NOTE | 2020-02-22 18:25 | NUR ---
POST ABG DONE ON BIPAP SETTINGS OF 04/14/RATE 100%. RESULTS REPORTED TO DR OSHEA. NO CHANGES IN THERAPY AT THE MOMENT. WILL CONTINUE TO MONITOR
--- NOTE | 2020-02-22 18:29 | NUR ---
Dr Montelongo at the bedside for MSE.
--- NOTE | 2020-02-22 19:33 | NUR ---
[place]soff report given to [facility] CCU RN.
[2020-02-22 20:28] VITALS: BP 147/91
--- NOTE | 2020-02-22 20:28 | NUR ---
[facility] DX OF RESP. FAILURE, COVID 19-+, VERBALLY NONRESPONSIVE, OPEN HER EYES TO VERBAL STIMULI. ON BIPAP I-15/E-5, RATE-16 FIO2- 100%.W/ O2 SAT OF 94%. HEP LOCK INTACT & PATENT ON R HAND.REPOSITIONED ON HER SIDE W/ HOB ELEVATED.
--- NOTE | 2020-02-22 20:40 | NUR ---
INSERTED [place] CATH FR#16 W/O DIFFICULTY W/ CLOUDY SEGUN URINE. CALLED DR Jaime MARQUEZ FOR ADM ORDER.
[2020-02-22 21:00] VITALS: BP 106/66
[2020-02-22 21:30] VITALS: BP 114/69
[2020-02-22] MEDS ORDERED: HYDROCODONE/APAP 5-325MG TABLET PO PRN (21:45)
[2020-02-22] MEDS ORDERED: ONDANSETRON 4 MG/2 ML VIAL IV PRN (21:45)
[2020-02-22] MEDS ORDERED: Z GUARD REMEDY PASTE 57 GM TUBE TOP PRN (21:45)
[2020-02-22] MEDS ORDERED: ZOLPIDEM 5 MG TABLET PO PRN (21:45)
[2020-02-22 22:00] VITALS: BP 123/71
[2020-02-22] MEDS ORDERED: MEROPENEM 1 G in IV NORMAL SALINE 100 ML IV SCH (22:00)
[2020-02-22] MEDS ORDERED: NORMAL SALINE FLUSH 10 ML DISP.SYRIN IV PRN (22:00)
[2020-02-22] MEDS: NORMAL SALINE FLUSH 10 ML DISP.SYRIN IV SCH (22:09)
[2020-02-22 23:00] VITALS: BP 111/67
[2020-02-22] MEDS ORDERED: MEROPENEM 1 G VIAL IV ONE (23:06)
[2020-02-22] MEDS ORDERED: VANCOMYCIN IV 1,500 MG in IV DEXTROSE 5% 500 ML IV ONE (23:45)
[2020-02-23] VITALS (46 sets, daily range): BP systolic 109–222; BP diastolic 57–129
[2020-02-23] MEDS ORDERED: MEROPENEM 1 G in IV NORMAL SALINE 100 ML IV SCH ×2
[2020-02-23] MEDS ORDERED: MEROPENEM 1 G in IV NORMAL SALINE 100 ML IV ONE ×2
[2020-02-23] MEDS: methylPREDNISolone SOD SUCC 40 MG/ML VIAL IV SCH ×3 (00:06→18:25)
[2020-02-23] MEDS ORDERED: VANCOMYCIN 1000 MG VIAL ONE (00:30)
[2020-02-23] MEDS ORDERED: VANCOMYCIN HCL 500 MG VIAL ONE (00:30)
[2020-02-23] MEDS ORDERED: ENOXAPARIN SODIUM 80 MG/0.8 ML DISP.SYRIN SQ SCH (02:00)
--- NOTE | 2020-02-23 02:07 | NUR ---
PT HAS BEEN ON CONT BI/PAP WITH MED. MASK ALL SHIFT 7P/7A WITH SETTINGS. 04/14 , RATE 12, 100%, THEN NEW ORDERS 22/09, RATE 16 , 100%, TITRATE FIO2 TO KEEP ABOVE 92%, SO PT NOW ON 90%, SAT 93-94%M PT WAKES UP AT TIMES, THEN GOES BACK TO SLEEP, ABG AT 0700, Juliocesar CORDOVAP Addendum: 02/23/20 at 0210 by MELLISSA LLOYD RT Amended: Links added.
--- NOTE | 2020-02-23 04:30 | NUR ---
AM CARE DONE. REPOSITIONED W/ HOB ELEVATED.
[2020-02-23 05:06] LABS: BASOPHILS % (AUTO) 0.1 % (0.0-2.0); HEMATOCRIT 45.2 % (31.2-41.9); HEMOGLOBIN 15.1 g/dL (10.9-14.3); LYMPHOCYTES # (AUTO) 0.7 K/uL (20.0-40.0); LYMPHOCYTES % (AUTO) 3.9 % (20.5-51.5); MEAN CORPUSCULAR HEMOGLOBIN 28.2 uug (24.7-32.8); MEAN CORPUSCULAR HGB CONC 34 g/dL (32.3-35.6); MEAN CORPUSCULAR VOLUME 84.3 fL (75.5-95.3); MONOCYTES # (AUTO) 0.6 K/uL (2.0-10.0); MONOCYTES % (AUTO) 3.1 % (0.0-11.0); NEUTROPHILS # (AUTO) 16.9 K/uL (1.8-8.9); NEUTROPHILS % (AUTO) 92.9 % (38.5-71.5); PLATELET COUNT (AUTO) 287 K/uL (179-408); RED BLOOD CELL COUNT(AUTO) 5.37 MIL/uL (3.63-4.92); WHITE BLOOD COUNT (AUTO) 18.3 K/uL (3.8-11.8)
[2020-02-23 05:29] LABS: CREATININE 1.3 mg/dL (0.6-1.3); MAGNESIUM 2.2 mg/dL (1.8-2.4); POTASSIUM 3.5 mmol/L (3.5-5.1)
--- NOTE | 2020-02-23 05:30 | NUR ---
CXR DONE. NOT IN ANY DISTRESS.
[2020-02-23] MEDS: NORMAL SALINE FLUSH 10 ML DISP.SYRIN IV SCH ×3 (05:40→22:01)
--- NOTE | 2020-02-23 07:15 | NUR ---
Received report from awake overnight counselor nurse, patient in bed asleep on bipap, sinus rhythm on the monitor. Appiah intact and draining. IV to left wrist. No distress noted at this time. Bed in low position, side rails upx2. Bed alarm on.
[2020-02-23 07:47] LABS: ABG BASE EXCESS 2.4 mmol/L; ABG HCO3 26.4 mmol/L; ABG PH 7.448 (7.350-7.450); ABG PO2 79.1 mmHg (75.0-100.0); ABG SITE RIGHT RADIAL; ABG TOTAL HEMOGLOBIN 16.1 G/dL (12.0-16.0); COHb 1.1 % (0.5-1.5); MetHb 0.1 % (0.0-1.5); O2Hb 95.1 % (94.0-97.0); VENT MODE BIPAP - 15/5
[2020-02-23] MEDS ORDERED: DEXTROSE 50% 50 ML DISP.SYRIN IV PRN (08:30)
[2020-02-23] MEDS: DONEPEZIL 10 MG TABLET PO SCH (09:00)
[2020-02-23] MEDS ORDERED: LIDOCAINE 5% PATCH TD SCH (09:00)
[2020-02-23] MEDS: LIDOCAINE 5% PATCH TD SCH (09:14)
[2020-02-23] MEDS: TIMOLOL MALEATE XE 0.5% OPHT 5 ML BOTTLE EACHEYE SCH (09:14)
[2020-02-23] MEDS: IV NS 1000 ML 1,000 ML IV PRN ×2 (09:15→19:32)
[2020-02-23] MEDS: MEROPENEM 1 G in IV NORMAL SALINE 100 ML IV SCH ×2 (11:12→23:57)
[2020-02-23] MEDS: BLOOD SUGAR DIAGNOSTIC 1 EACH STRIP VI SCH ×3 (11:16→23:55)
[2020-02-23] MEDS: INSULIN REGULAR, HUMAN 300 UNIT/3 ML VIAL SQ PRN ×2 (11:33→23:56)
--- NOTE | 2020-02-23 11:40 | NUR ---
Contacted Dr. Montelongo to inform him that the patient is to have a CTA chest and to clear her for contrast administration and to inform him that patients blood pressure has been increasing. Patient is cleared for CTA chest but no orders received for BP medication.
--- NOTE | 2020-02-23 15:08 | NUR ---
Contacted Dr. Montelongo for BP medication as it is now 203/108. Nitropaste ordered 1 inch cw Q6 but Dr. Jamison started patient on Cardene drip as he also reviewed patient's Echocardiogram and suspected a disection. patient is being prepped to be taken to [place].
[2020-02-23] MEDS ORDERED: IOHEXOL 350 100 ML INFUS..BTL ONE (15:34)
[2020-02-23] MEDS ORDERED: SWABABLE VALVE TRANSFER SET EA MC ONE (15:34)
[2020-02-23] MEDS ORDERED: IV NORMAL SALINE 250 ML IV ONE (15:34)
[2020-02-23] MEDS: NICARDIPINE-NS IVPB 200 ML IV PRN (15:44)
--- NOTE | 2020-02-23 19:14 | NUR ---
Report given to cook night nurse, patient in bed continues of bipap with sinus rhythm on the monitor. Appiah intact and draining. Patient is on air mattress. IV in left Ac running cardene drip ant 1mg/hr and IVF NS on left wrist @100cc/hr. Bed in low position, side rails upx2. Bed alarm on.
--- NOTE | 2020-02-23 20:00 | NUR ---
RECEIVED PT. OPEN HER EYES TO VERBAL STIMULI, VERBALLY RESPONSIVE BUT GARBLED. ON BIPAP I-15/E-5, RATE-16, FIO2-100% W/ O2 SAT OF 95%. IVF NS @ 100CC/HR ON LAC. ON CARDENE DRIP @ 1MG/HR ON R HAND. HS CARE DONE. REPOSITIONED W/ HOB ELEVATED.REMAINS NPO.
[2020-02-23] MEDS: ATORVASTATIN 40 MG TABLET PO SCH (21:00)
[2020-02-23 22:12] LABS: *BILIRUBIN,URIN NEGATIVE (NEGATIVE); *BLOOD, URINE 3+ (NEGATIVE); *CLARITY,URINE CLEAR (CLEAR); *COLOR,URINE YELLOW (YELLOW); *KETONES,URINE NEGATIVE (NEGATIVE); LEUKOCYTE ESTERASE ,URINE NEGATIVE (NEGATIVE); NITRITE, URINE NEGATIVE (NEGATIVE); UGLUCOSE NEGATIVE (NEGATIVE)
[2020-02-23 22:20] LABS: *CREATININE,URINE 58.4 mg/dL (30-125); *URINE TOTAL PROTEIN RANDOM 46.4 mg/dL (<150/24HR)
--- NOTE | 2020-02-23 22:30 | NUR ---
HS CARE DONE. REPOSITIONED W/ HOB ELEVATED.
[2020-02-24] VITALS (95 sets, daily range): BP systolic 120–177; BP diastolic 63–114
--- NOTE | 2020-02-24 00:48 | NUR ---
PT ON CONT BI/PAP WITH FULL MASK, RE POSITION MASK AT TIMES, SETTINGS, 15/5, PS 10, RATE 16, FIO2 @ 100%, SAT 94- 96%, PT DOES MOVE AROUND AT TIMES, ABG IN AM - 0700, NO CHANGES MADE,Makenzie LLOYD RCP Addendum: 02/24/20 at 0050 by MELLISSA LLOYD RT Amended: Links added.
[2020-02-24] MEDS ORDERED: ENOXAPARIN SODIUM 80 MG/0.8 ML DISP.SYRIN SQ SCH (02:00)
[2020-02-24] MEDS ORDERED: NICARDIPINE IN NS 20 MG/200 ML PIGGYBACK IV ONE (04:00)
[2020-02-24] MEDS: IV NS 1000 ML 1,000 ML IV PRN (04:21)
[2020-02-24] MEDS: NICARDIPINE IN NS 200 ML IV PRN (04:42)
[2020-02-24] MEDS: NICARDIPINE-NS IVPB 200 ML IV PRN (04:42)
--- NOTE | 2020-02-24 05:00 | NUR ---
AM CARE DONE. REPOSITIONED W/ HOB ELEVATED.
[2020-02-24 05:05] LABS: BASOPHILS % (AUTO) 0.2 % (0.0-2.0); HEMATOCRIT 44.7 % (31.2-41.9); HEMOGLOBIN 14.9 g/dL (10.9-14.3); LYMPHOCYTES # (AUTO) 0.5 K/uL (20.0-40.0); LYMPHOCYTES % (AUTO) 2.5 % (20.5-51.5); MEAN CORPUSCULAR HEMOGLOBIN 28.2 uug (24.7-32.8); MEAN CORPUSCULAR HGB CONC 33 g/dL (32.3-35.6); MEAN CORPUSCULAR VOLUME 84.4 fL (75.5-95.3); MONOCYTES # (AUTO) 1.6 K/uL (2.0-10.0); MONOCYTES % (AUTO) 7.3 % (0.0-11.0); NEUTROPHILS # (AUTO) 19.4 K/uL (1.8-8.9); PLATELET COUNT (AUTO) 244 K/uL (179-408); WHITE BLOOD COUNT (AUTO) 21.5 K/uL (3.8-11.8)
[2020-02-24 05:14] LABS: POTASSIUM 3.5 mmol/L (3.5-5.1)
[2020-02-24 05:15] LABS: BILIRUBIN,TOTAL 0.7 mg/dL (0.2-1.0); CREATININE 0.7 mg/dL (0.6-1.3); MAGNESIUM 2.4 mg/dL (1.8-2.4); TOTAL PROTEIN, SERUM 6.5 g/dL (6.4-8.2); URIC ACID 4.8 mg/dL (2.6-6.0)
[2020-02-24 05:22] LABS: THYROID STIMULATING HORMONE 1.208 mIU/mL (0.358-3.740)
[2020-02-24] MEDS: methylPREDNISolone SOD SUCC 40 MG/ML VIAL IV SCH ×2 (05:33→18:26)
[2020-02-24] MEDS: NORMAL SALINE FLUSH 10 ML DISP.SYRIN IV SCH ×3 (05:33→21:59)
[2020-02-24] MEDS: BLOOD SUGAR DIAGNOSTIC 1 EACH STRIP VI SCH ×3 (05:57→18:28)
--- NOTE | 2020-02-24 07:15 | NUR ---
Received report from night cleaner nurse, patient in bed asleep, no distress noted at this time. Sinus rhythm on the monitor, BIPAP with 100% oxygen saturation 95%, Cardene drip @5mg/hr, IVF NS running @ 100cc/hr. Patient has aguilar draining clear yellow urine, air mattress inflated, Bed in low position, side rails up x2.
[2020-02-24] MEDS: VANCOMYCIN IV 1,250 MG in IV DEXTROSE 5% 250 ML IV SCH (07:54)
--- NOTE | 2020-02-24 07:58 | NUR ---
Patient seen by Dr. Montelongo, full report given.
[2020-02-24 07:59] LABS: ABG BASE EXCESS -0.1 mmol/L; ABG HCO3 24.8 mmol/L; ABG PCO2 41.2 mmHg (35.0-45.0); ABG PH 7.397 (7.350-7.450); ABG PO2 75.3 mmHg (75.0-100.0); ABG SITE RIGHT RADIAL; ABG TOTAL HEMOGLOBIN 15.3 G/dL (12.0-16.0); COHb 1.1 % (0.5-1.5); MetHb 0.3 % (0.0-1.5)
[2020-02-24] MEDS: DONEPEZIL 10 MG TABLET PO SCH (08:00)
[2020-02-24] MEDS: LIDOCAINE 5% PATCH TD SCH (08:00)
[2020-02-24] MEDS ORDERED: FUROSEMIDE 40 MG/4 ML VIAL IV ONE (08:00)
[2020-02-24] MEDS: TIMOLOL MALEATE XE 0.5% OPHT 5 ML BOTTLE EACHEYE SCH (08:01)
[2020-02-24 09:00] LABS: BACTERIA,URINE NONE SEEN /HPF (NONE SEEN); SQUAMOUS EPITHELIAL CELL,UR FEW /HPF (NONE SEEN); WBC,URINE 0-3 /HPF (0-3)
--- NOTE | 2020-02-24 10:27 | NUR ---
Patient seen by Dr. Rollins, full report given.
[2020-02-24] MEDS: FAMOTIDINE. 20 MG/2 ML VIAL IV SCH ×2 (10:30→20:12)
[2020-02-24] MEDS: MEROPENEM 1 G in IV NORMAL SALINE 100 ML IV SCH ×2 (11:43→20:10)
[2020-02-24] MEDS: INSULIN REGULAR, HUMAN 300 UNIT/3 ML VIAL SQ PRN (11:56)
[2020-02-24] MEDS ORDERED: VANCOMYCIN IV 1,250 MG in IV DEXTROSE 5% 250 ML IV SCH (12:00)
[2020-02-24] MEDS ORDERED: ALBUTEROL SULFATE 8 GM HFA.AER.AD INH SCH (13:30)
[2020-02-24] MEDS ORDERED: ALBUTEROL SULFATE 2.5 MG/3 ML NEBU NEB SCH (13:30)
[2020-02-24] MEDS ORDERED: ACETYLCYSTEINE 20% 800 MG/4 ML VIAL NEB SCH ×2 (13:30)
[2020-02-24] MEDS: ALBUTEROL SULFATE 2.5 MG/3 ML NEBU NEB SCH ×2 (14:17→19:22)
[2020-02-24] MEDS: ACETYLCYSTEINE 20% 800 MG/4 ML VIAL NEB SCH ×2 (14:17→19:23)
[2020-02-24] MEDS: ENOXAPARIN SODIUM 80 MG/0.8 ML DISP.SYRIN SQ SCH (18:29)
--- NOTE | 2020-02-24 19:04 | NUR ---
Patient continues to be on bipap 15/5 85%, Sinus rhythm on the monitor, 95% saturation. Scd's on, air mattress inflated, aguilar catheter intact and draining. Cardene continues 0.6mg/hr, no IVFluids. Bed in low position, side rails upx2.
[2020-02-24] MEDS: ATORVASTATIN 40 MG TABLET PO SCH (20:52)
--- NOTE | 2020-02-24 21:00 | NUR ---
Placed patient on 7L F/M.
[2020-02-25] VITALS (69 sets, daily range): BP systolic 114–178; BP diastolic 64–129
[2020-02-25] MEDS: BLOOD SUGAR DIAGNOSTIC 1 EACH STRIP VI SCH ×4 (00:13→18:28)
[2020-02-25] MEDS: MEROPENEM 1 G in IV NORMAL SALINE 100 ML IV SCH ×3 (04:12→19:41)
--- NOTE | 2020-02-25 04:40 | NUR ---
Patient in respiratory distress; resumed BiPaP / prior setting. Restless. Soft wrist restraints applied. Almost, immediately calmed down.
--- NOTE | 2020-02-25 05:15 | NUR ---
Noted PAC's & PVC's / cardiac monitoring; see strips.
[2020-02-25 05:34] LABS: BASOPHILS % (AUTO) 0.2 % (0.0-2.0); HEMATOCRIT 44.7 % (31.2-41.9); LYMPHOCYTES # (AUTO) 0.5 K/uL (20.0-40.0); LYMPHOCYTES % (AUTO) 3.2 % (20.5-51.5); MEAN CORPUSCULAR HEMOGLOBIN 28.5 uug (24.7-32.8); MEAN CORPUSCULAR HGB CONC 34 g/dL (32.3-35.6); MEAN CORPUSCULAR VOLUME 84.9 fL (75.5-95.3); MONOCYTES # (AUTO) 1.1 K/uL (2.0-10.0); MONOCYTES % (AUTO) 6.4 % (0.0-11.0); NEUTROPHILS # (AUTO) 15.3 K/uL (1.8-8.9); NEUTROPHILS % (AUTO) 90.2 % (38.5-71.5); PLATELET COUNT (AUTO) 226 K/uL (179-408); RED BLOOD CELL COUNT(AUTO) 5.27 MIL/uL (3.63-4.92)
[2020-02-25] MEDS: methylPREDNISolone SOD SUCC 40 MG/ML VIAL IV SCH ×2 (05:41→17:19)
[2020-02-25] MEDS: NORMAL SALINE FLUSH 10 ML DISP.SYRIN IV SCH ×3 (05:41→21:19)
[2020-02-25 05:52] LABS: BILIRUBIN,TOTAL 0.7 mg/dL (0.2-1.0); MAGNESIUM 2.7 mg/dL (1.8-2.4); PHOSPHOROUS 2.3 mg/dL (2.5-4.9); POTASSIUM 3.4 mmol/L (3.5-5.1); TOTAL PROTEIN, SERUM 6.6 g/dL (6.4-8.2)
[2020-02-25] MEDS: NICARDIPINE IN NS 200 ML IV PRN (05:53)
[2020-02-25] MEDS: IV NORMAL SALINE 250 ML IV PRN ×3 (05:55→06:11)
--- NOTE | 2020-02-25 05:56 | NUR ---
Double scanned NSS 250; deleted one.
[2020-02-25] MEDS: INSULIN REGULAR, HUMAN 300 UNIT/3 ML VIAL SQ PRN (06:07)
[2020-02-25] MEDS: ENOXAPARIN SODIUM 80 MG/0.8 ML DISP.SYRIN SQ SCH ×2 (06:08→17:35)
--- NOTE | 2020-02-25 06:20 | NUR ---
Stating: This life is not worth it.
[2020-02-25] MEDS: ALBUTEROL SULFATE 2.5 MG/3 ML NEBU NEB SCH ×3 (07:26→19:37)
[2020-02-25] MEDS: ACETYLCYSTEINE 20% 800 MG/4 ML VIAL NEB SCH ×3 (07:26→19:37)
[2020-02-25 07:47] LABS: ABG BASE EXCESS 1.7 mmol/L; ABG HCO3 26.5 mmol/L; ABG PCO2 42.4 mmHg (35.0-45.0); ABG PH 7.414 (7.350-7.450); ABG PO2 119.3 mmHg (75.0-100.0); ABG SITE RIGHT RADIAL; ABG TOTAL HEMOGLOBIN 15.4 G/dL (12.0-16.0); O2Hb 97.7 % (94.0-97.0); VENT MODE BIPAP 15/5
[2020-02-25] MEDS: DONEPEZIL 10 MG TABLET PO SCH (07:47)
[2020-02-25] MEDS: FAMOTIDINE. 20 MG/2 ML VIAL IV SCH ×2 (07:47→20:52)
[2020-02-25] MEDS: VANCOMYCIN IV 1,250 MG in IV DEXTROSE 5% 250 ML IV SCH (07:47)
[2020-02-25] MEDS: LIDOCAINE 5% PATCH TD SCH (07:48)
[2020-02-25] MEDS: TIMOLOL MALEATE XE 0.5% OPHT 5 ML BOTTLE EACHEYE SCH (08:04)
--- NOTE | 2020-02-25 09:02 | NUR ---
Dr. Tavarez here to see the pt. Full report given. New orders received.
[2020-02-25] MEDS: POTASSIUM CHLORIDE 50 ML IV SCH ×2 (10:00→11:58)
--- NOTE | 2020-02-25 14:05 | NUR ---
PICC line RN here to see pt for midline insertion.
[2020-02-25] MEDS ORDERED: NEUTRA PHOS PACKET PO ONE (15:45)
[2020-02-25] MEDS: ATORVASTATIN 40 MG TABLET PO SCH (20:47)
[2020-02-25] MEDS: ACETAMINOPHEN 325 MG TABLET PO PRN (20:52)
[2020-02-26] VITALS (88 sets, daily range): BP systolic 117–189; BP diastolic 62–117
[2020-02-26] MEDS: BLOOD SUGAR DIAGNOSTIC 1 EACH STRIP VI SCH ×4 (00:16→18:25)
[2020-02-26] MEDS: INSULIN REGULAR, HUMAN 300 UNIT/3 ML VIAL SQ PRN ×2 (00:17→12:05)
--- NOTE | 2020-02-26 00:48 | NUR ---
SaO2 88%; increased to 8L N/C.
[2020-02-26] MEDS: ACETAMINOPHEN 325 MG TABLET PO PRN ×2 (01:26→02:57)
--- NOTE | 2020-02-26 02:20 | NUR ---
SaO2 91%; started 10 L simple mask.
[2020-02-26] MEDS: MEROPENEM 1 G in IV NORMAL SALINE 100 ML IV SCH ×3 (03:38→19:34)
[2020-02-26] MEDS: NORMAL SALINE FLUSH 10 ML DISP.SYRIN IV SCH ×3 (05:31→22:25)
[2020-02-26] MEDS: methylPREDNISolone SOD SUCC 40 MG/ML VIAL IV SCH ×2 (05:33→18:24)
[2020-02-26 05:34] LABS: BASOPHILS % (AUTO) 0.2 % (0.0-2.0); HEMATOCRIT 43.2 % (31.2-41.9); HEMOGLOBIN 14.5 g/dL (10.9-14.3); LYMPHOCYTES # (AUTO) 0.5 K/uL (20.0-40.0); LYMPHOCYTES % (AUTO) 4.2 % (20.5-51.5); MEAN CORPUSCULAR HEMOGLOBIN 28.2 uug (24.7-32.8); MEAN CORPUSCULAR HGB CONC 33 g/dL (32.3-35.6); MEAN CORPUSCULAR VOLUME 84.5 fL (75.5-95.3); MONOCYTES % (AUTO) 8.4 % (0.0-11.0); NEUTROPHILS # (AUTO) 10.5 K/uL (1.8-8.9); NEUTROPHILS % (AUTO) 87.2 % (38.5-71.5); PLATELET COUNT (AUTO) 209 K/uL (179-408); RED BLOOD CELL COUNT(AUTO) 5.12 MIL/uL (3.63-4.92); WHITE BLOOD COUNT (AUTO) 12.1 K/uL (3.8-11.8)
[2020-02-26] MEDS: NICARDIPINE IN NS 200 ML IV PRN (05:34)
[2020-02-26] MEDS: IV NORMAL SALINE 250 ML IV PRN (05:39)
[2020-02-26 05:54] LABS: CREATININE 0.9 mg/dL (0.6-1.3); MAGNESIUM 2.5 mg/dL (1.8-2.4); POTASSIUM 3.9 mmol/L (3.5-5.1)
[2020-02-26] MEDS: ENOXAPARIN SODIUM 80 MG/0.8 ML DISP.SYRIN SQ SCH ×2 (05:59→18:26)
--- NOTE | 2020-02-26 06:00 | NUR ---
Vancomycin dose & level cancelled / pharmacy.
[2020-02-26] MEDS: ACETYLCYSTEINE 20% 800 MG/4 ML VIAL NEB SCH ×3 (07:56→19:35)
[2020-02-26] MEDS: ALBUTEROL SULFATE 2.5 MG/3 ML NEBU NEB SCH ×3 (07:56→19:35)
[2020-02-26] MEDS: TIMOLOL MALEATE XE 0.5% OPHT 5 ML BOTTLE EACHEYE SCH (08:08)
[2020-02-26] MEDS: LIDOCAINE 5% PATCH TD SCH (08:08)
[2020-02-26] MEDS: DONEPEZIL 10 MG TABLET PO SCH (08:08)
[2020-02-26] MEDS: FAMOTIDINE. 20 MG/2 ML VIAL IV SCH (08:08)
[2020-02-26] MEDS: VANCOMYCIN IV 1,250 MG in IV DEXTROSE 5% 250 ML IV SCH (10:12)
[2020-02-26] MEDS: LOSARTAN POTASSIUM 50 MG TABLET PO SCH ×2 (11:50→20:38)
[2020-02-26] MEDS ORDERED: NEUTRA PHOS PACKET PO ONE (15:30)
[2020-02-26] MEDS: ATORVASTATIN 40 MG TABLET PO SCH (20:38)
[2020-02-26] MEDS: FAMOTIDINE 20 MG TABLET PO SCH (20:38)
[2020-02-26] MEDS: HALOPERIDOL LACTATE 5 MG/1 ML VIAL IV PRN (22:54)
--- NOTE | 2020-02-26 22:54 | NUR ---
Patient agitated pulling on IV's. Haldol / eMar; with desired effect. See vital sign effects.
[2020-02-27] VITALS (26 sets, daily range): BP systolic 103–167; BP diastolic 50–91
[2020-02-27] MEDS: BLOOD SUGAR DIAGNOSTIC 1 EACH STRIP VI SCH ×5 (00:12→20:29)
[2020-02-27] MEDS: INSULIN REGULAR, HUMAN 300 UNIT/3 ML VIAL SQ PRN ×4 (00:12→16:42)
--- NOTE | 2020-02-27 00:50 | NUR ---
Noted: cardiac junctional rhythm 19 beats; rate 62. Notified Dr Escobedo. See strip sheets.
[2020-02-27] MEDS: VANCOMYCIN IV 1,250 MG in IV DEXTROSE 5% 250 ML IV SCH (03:18)
[2020-02-27] MEDS: MEROPENEM 1 G in IV NORMAL SALINE 100 ML IV SCH ×3 (03:18→19:59)
[2020-02-27 04:51] LABS: BASOPHILS % (AUTO) 0.2 % (0.0-2.0); HEMATOCRIT 41.6 % (31.2-41.9); HEMOGLOBIN 13.8 g/dL (10.9-14.3); LYMPHOCYTES # (AUTO) 0.6 K/uL (20.0-40.0); LYMPHOCYTES % (AUTO) 5.4 % (20.5-51.5); MEAN CORPUSCULAR HEMOGLOBIN 28.2 uug (24.7-32.8); MEAN CORPUSCULAR HGB CONC 33 g/dL (32.3-35.6); MEAN CORPUSCULAR VOLUME 84.8 fL (75.5-95.3); MONOCYTES # (AUTO) 0.8 K/uL (2.0-10.0); MONOCYTES % (AUTO) 6.8 % (0.0-11.0); NEUTROPHILS # (AUTO) 10.6 K/uL (1.8-8.9); NEUTROPHILS % (AUTO) 87.6 % (38.5-71.5); PLATELET COUNT (AUTO) 181 K/uL (179-408); RED BLOOD CELL COUNT(AUTO) 4.91 MIL/uL (3.63-4.92); WHITE BLOOD COUNT (AUTO) 12.1 K/uL (3.8-11.8)
[2020-02-27 05:03] LABS: CREATININE 0.9 mg/dL (0.6-1.3); MAGNESIUM 2.7 mg/dL (1.8-2.4); PHOSPHOROUS 2.1 mg/dL (2.5-4.9); POTASSIUM 3.9 mmol/L (3.5-5.1)
[2020-02-27] MEDS: NORMAL SALINE FLUSH 10 ML DISP.SYRIN IV SCH ×3 (05:10→22:00)
[2020-02-27] MEDS: methylPREDNISolone SOD SUCC 40 MG/ML VIAL IV SCH ×2 (05:11→17:07)
[2020-02-27] MEDS: ENOXAPARIN SODIUM 80 MG/0.8 ML DISP.SYRIN SQ SCH ×2 (05:42→17:07)
--- NOTE | 2020-02-27 06:00 | NUR ---
Expectorated moderate sized nair mucus plug. Decreased to 4L N/C.
--- NOTE | 2020-02-27 07:22 | NUR ---
Dr. Montelongo called and patient is ok to downgrade to tele. Informed that patient is off IV cardene since 0500. and has been taking PO meds.
[2020-02-27] MEDS: ALBUTEROL SULFATE 2.5 MG/3 ML NEBU NEB SCH ×3 (08:00→19:53)
[2020-02-27] MEDS: ACETYLCYSTEINE 20% 800 MG/4 ML VIAL NEB SCH ×3 (08:00→19:52)
--- NOTE | 2020-02-27 08:16 | NUR ---
Report given to [facility].
--- NOTE | 2020-02-27 08:20 | NUR ---
RECEIVED PATIENT FROM CCU BY BED TO ROOM 314 FIXED AND MADE COMFORTABLE SHE IS ALERT TO SELF WITH CONFUSSION AND DISORIENTED CALLS OUT FOR HELP BUT WHEN ASKED DOES NOT KNOW WHAT SHE WANTS ALL NEEDS ANTICIPATED AND SATISFIED ON O2 AT 4L/M WITH NO SOB AT THIS TIME SHE HAS A MID LINE AND A PERIPHERAL SITES ON HER LEFT ARM WITH NO S/S OF INFILTERATION ON SITE [place] CATH INTACT TO GRAVITY DRAINAGE NO HEMATURIA NO S/S OF HYPO/HYPERGLYCEMIC REACTIONS AT THIS TIME WILL CONTINUE TO OBSERVE.
[2020-02-27] MEDS ORDERED: LABETALOL HCL 200 MG TABLET PO SCH (09:00)
[2020-02-27] MEDS: DONEPEZIL 10 MG TABLET PO SCH (09:12)
[2020-02-27] MEDS: FAMOTIDINE 20 MG TABLET PO SCH ×2 (09:12→20:00)
[2020-02-27] MEDS: HALOPERIDOL LACTATE 5 MG/1 ML VIAL IV PRN ×2 (09:12→16:56)
[2020-02-27] MEDS: LOSARTAN POTASSIUM 50 MG TABLET PO SCH ×2 (09:13→20:13)
[2020-02-27] MEDS: LIDOCAINE 5% PATCH TD SCH (09:22)
[2020-02-27] MEDS: TIMOLOL MALEATE XE 0.5% OPHT 5 ML BOTTLE EACHEYE SCH (09:23)
--- NOTE | 2020-02-27 11:36 | NUR ---
PATIENT SEEN AND EXAMINED BY DR HEALY WITH NEW ORDERS AND NOTED
[2020-02-27] MEDS ORDERED: MAGNESIUM HYDROXIDE 30 ML LIQUID UDC PO PRN (14:30)
[2020-02-27] MEDS ORDERED: NEUTRA PHOS PACKET PO ONE (15:45)
[2020-02-27] MEDS ORDERED: DEXTROSE 50% 50 ML DISP.SYRIN IV PRN (16:45)
--- NOTE | 2020-02-27 19:00 | NUR ---
Pt seen and assessed. Patient repositioned and made more comfortable in bed. No new findings upon assessment. Call light within reach, bed at lowest position, IV checked and patent, No distress, afebrile, no SOB, HOB elevated. Will continue to monitor and assess.
[2020-02-27] MEDS: ATORVASTATIN 40 MG TABLET PO SCH (20:00)
[2020-02-27] MEDS: AMLODIPINE 5 MG TABLET PO SCH (20:13)
--- NOTE | 2020-02-27 20:45 | NUR ---
Pt assessed. Routine meds given. Patient report pain, PRN [place] was administered. Linens changed. Bed at lowest position, call light within reach, HOB elevated, no SOB, Afebrile. Will continue to monitor and assess.
--- NOTE | 2020-02-27 21:48 | NUR ---
Spoke with patients daughter in regards to PT for her mother. Will inform Dr. Montelongo in the morning regarding the topic.
--- NOTE | 2020-02-27 23:45 | NUR ---
Pt sleeping soundly in bed. No signs of distress or pain. Bed at lowest position, call light within reach, IV patent, O2 flowing, HOB elevated. Will continue to monitor and assess.
[2020-02-28] VITALS: BP 127/61
[2020-02-28] MEDS: MEROPENEM 1 G in IV NORMAL SALINE 100 ML IV SCH ×3 (03:02→20:52)
[2020-02-28 04:00] VITALS: BP 120/58
[2020-02-28] MEDS: ENOXAPARIN SODIUM 80 MG/0.8 ML DISP.SYRIN SQ SCH ×2 (05:31→06:00)
[2020-02-28] MEDS: methylPREDNISolone SOD SUCC 40 MG/ML VIAL IV SCH ×2 (05:32→17:43)
[2020-02-28] MEDS: HALOPERIDOL LACTATE 5 MG/1 ML VIAL IV PRN (05:36)
[2020-02-28] MEDS: NORMAL SALINE FLUSH 10 ML DISP.SYRIN IV SCH ×3 (05:37→22:13)
--- NOTE | 2020-02-28 06:08 | NUR ---
Pt assessed and found that previous IV site had been bleeding. Pt was changed, pressure applied to bleeding site, dressing changed, VSS. Lovenox was held on account of signs of bleeding. Call light within reach, bed at lowest position, linens changed, O2 flowing via NC. Will endorse to oncoming nurse.
[2020-02-28] MEDS: BLOOD SUGAR DIAGNOSTIC 1 EACH STRIP VI SCH ×5 (06:40→21:09)
[2020-02-28 06:47] LABS: CREATININE 0.8 mg/dL (0.6-1.3); POTASSIUM 3.9 mmol/L (3.5-5.1)
--- NOTE | 2020-02-28 07:30 | NUR ---
Received patient resting in bed, no sign of distress noted at this time. Patient is on 4 L of oxygen nasal cannula. Patient has a left upper arm midline hep lock. There are bruises on the lower abdomen and right posterior surface of the hand. Safety precautions are in place with call light and belongings within reach. Will continue to monitor.
[2020-02-28] MEDS: ACETYLCYSTEINE 20% 800 MG/4 ML VIAL NEB SCH ×3 (08:04→20:25)
[2020-02-28] MEDS: ALBUTEROL SULFATE 2.5 MG/3 ML NEBU NEB SCH ×3 (08:04→20:25)
[2020-02-28] MEDS: AMLODIPINE 5 MG TABLET PO SCH ×2 (09:00→09:58)
[2020-02-28] MEDS: FAMOTIDINE 20 MG TABLET PO SCH ×3 (09:00→20:53)
[2020-02-28] MEDS: LOSARTAN POTASSIUM 50 MG TABLET PO SCH ×3 (09:00→20:53)
[2020-02-28] MEDS: DONEPEZIL 10 MG TABLET PO SCH ×2 (09:00→09:50)
--- NOTE | 2020-02-28 09:00 | NUR ---
Patient was having difficulty eating her oatmeal, she kept gagging and coughing. A swallow evaluation is needed. Will make MD aware and order for speech evaluation has been put in. Will continue to monitor.
[2020-02-28] MEDS: LIDOCAINE 5% PATCH TD SCH (09:50)
[2020-02-28] MEDS: TIMOLOL MALEATE XE 0.5% OPHT 5 ML BOTTLE EACHEYE SCH (09:58)
[2020-02-28 11:30] VITALS: BP 130/89
[2020-02-28] MEDS: INSULIN REGULAR, HUMAN 300 UNIT/3 ML VIAL SQ PRN ×2 (12:54→17:44)
--- NOTE | 2020-02-28 15:40 | NUR ---
Patient had a bowel movement that was saturated with bright red blood and has visible clots. Made MD Dr Montelongo aware and awaiting orders. Will continue to monitor.
[2020-02-28 16:00] VITALS: BP 126/82
--- NOTE | 2020-02-28 16:25 | NUR ---
Gave Protamine sulfate as ordered by Dr Montelongo, patient had a another bowel movement filled with blood. Will continue to monitor and endorse to oncoming nurse.
[2020-02-28 16:33] LABS: BASOPHILS % (AUTO) 0.2 % (0.0-2.0); HEMOGLOBIN 12.5 g/dL (10.9-14.3); LYMPHOCYTES # (AUTO) 0.6 K/uL (20.0-40.0); LYMPHOCYTES % (AUTO) 3.9 % (20.5-51.5); MEAN CORPUSCULAR HEMOGLOBIN 28.5 uug (24.7-32.8); MEAN CORPUSCULAR HGB CONC 34 g/dL (32.3-35.6); MEAN CORPUSCULAR VOLUME 84.3 fL (75.5-95.3); MONOCYTES # (AUTO) 1.5 K/uL (2.0-10.0); MONOCYTES % (AUTO) 9.5 % (0.0-11.0); NEUTROPHILS % (AUTO) 86.4 % (38.5-71.5); PLATELET COUNT (AUTO) 168 K/uL (179-408); RED BLOOD CELL COUNT(AUTO) 4.39 MIL/uL (3.63-4.92); WHITE BLOOD COUNT (AUTO) 16.2 K/uL (3.8-11.8)
[2020-02-28 16:51] LABS: IRON, SERUM 78 ug/dL (50-175)
[2020-02-28 16:52] LABS: FERRITIN 335 ng/mL (8-252)
[2020-02-28] MEDS ORDERED: NEUTRA PHOS PACKET PO ONE (17:00)
--- NOTE | 2020-02-28 19:18 | NUR ---
Patient is resting in bed, no sign of distress noted. Gave all medications as ordered. Patient is still having difficulty with eating. Safety precautions in place with call light and belongings within reach. Will endorse to oncoming nurse.
--- NOTE | 2020-02-28 20:15 | NUR ---
Received patient in bed .Confused ,mumbling words.HOB elevated with O2 inhalation of 4 LPM via NC.No s/s of distress noted.Due meds given and IV ATB as ordered.No a/r noted.Midline on left upper arm intact.Appiah catheter fr [address] draining well with clear yellow urine output.Patient noted with small dark brown/black BMx1.Proper PPE strictly observed for covid.Continue safety measures.Will continue to monitor.
[2020-02-28 20:41] VITALS: BP 125/89
[2020-02-28] MEDS: ATORVASTATIN 40 MG TABLET PO SCH (20:54)
[2020-02-29] VITALS: BP 138/85
[2020-02-29] MEDS: ACETAMINOPHEN 325 MG TABLET PO PRN (00:20)
[2020-02-29] MEDS: MEROPENEM 1 G in IV NORMAL SALINE 100 ML IV SCH ×2 (03:26→12:07)
[2020-02-29 04:00] VITALS: BP 121/71
[2020-02-29] MEDS: methylPREDNISolone SOD SUCC 40 MG/ML VIAL IV SCH ×2 (05:48→18:32)
[2020-02-29] MEDS: NORMAL SALINE FLUSH 10 ML DISP.SYRIN IV SCH ×2 (05:49→15:48)
--- NOTE | 2020-02-29 06:18 | NUR ---
Patient was complaining of back pain.Repositioned and Medicated with good result.Slept well.No episodes of rectal bleeding through out the night.All needs anticipated and met accordingly.
[2020-02-29] MEDS: BLOOD SUGAR DIAGNOSTIC 1 EACH STRIP VI SCH ×4 (06:35→20:19)
[2020-02-29] MEDS: ALBUTEROL SULFATE 2.5 MG/3 ML NEBU NEB SCH ×3 (07:39→19:39)
[2020-02-29] MEDS: ACETYLCYSTEINE 20% 800 MG/4 ML VIAL NEB SCH ×3 (07:39→19:39)
[2020-02-29] MEDS ORDERED: AMLODIPINE 5 MG TABLET PO SCH (09:00)
[2020-02-29 09:45] LABS: BASOPHILS % (AUTO) 0.1 % (0.0-2.0); HEMATOCRIT 35.5 % (31.2-41.9); HEMOGLOBIN 11.9 g/dL (10.9-14.3); LYMPHOCYTES # (AUTO) 0.8 K/uL (20.0-40.0); LYMPHOCYTES % (AUTO) 5.7 % (20.5-51.5); MEAN CORPUSCULAR HEMOGLOBIN 28.5 uug (24.7-32.8); MEAN CORPUSCULAR HGB CONC 34 g/dL (32.3-35.6); MEAN CORPUSCULAR VOLUME 85.2 fL (75.5-95.3); MONOCYTES # (AUTO) 1.3 K/uL (2.0-10.0); MONOCYTES % (AUTO) 8.9 % (0.0-11.0); NEUTROPHILS # (AUTO) 12.4 K/uL (1.8-8.9); NEUTROPHILS % (AUTO) 85.3 % (38.5-71.5); PLATELET COUNT (AUTO) 148 K/uL (179-408); RED BLOOD CELL COUNT(AUTO) 4.16 MIL/uL (3.63-4.92); WHITE BLOOD COUNT (AUTO) 14.6 K/uL (3.8-11.8)
[2020-02-29 09:46] LABS: CREATININE 0.7 mg/dL (0.6-1.3); POTASSIUM 4.6 mmol/L (3.5-5.1)
[2020-02-29] MEDS: FAMOTIDINE 20 MG TABLET PO SCH ×2 (10:04→20:19)
[2020-02-29] MEDS: DONEPEZIL 10 MG TABLET PO SCH (10:05)
[2020-02-29] MEDS: LOSARTAN POTASSIUM 50 MG TABLET PO SCH ×2 (10:06→20:19)
[2020-02-29] MEDS: LIDOCAINE 5% PATCH TD SCH (10:07)
[2020-02-29] MEDS: TIMOLOL MALEATE XE 0.5% OPHT 5 ML BOTTLE EACHEYE SCH (10:09)
[2020-02-29 11:57] VITALS: BP 122/57
[2020-02-29 16:44] VITALS: BP 145/92
[2020-02-29] MEDS ORDERED: GLUCERNA SHAKE VANILLA 237 ML CAN PO SCH (17:30)
--- NOTE | 2020-02-29 18:55 | NUR ---
patient calm and comfortable through out shift with no acute signs of distress; patient with stable vital signs ; patient medication compliant ;patient will continue to be monitored ; report given to oncoming shift.
[2020-02-29 20:00] VITALS: BP 136/92
[2020-02-29] MEDS: ATORVASTATIN 40 MG TABLET PO SCH (20:18)
[2020-02-29 20:19] VITALS: BP 136/92
[2020-02-29] MEDS: INSULIN REGULAR, HUMAN 300 UNIT/3 ML VIAL SQ PRN (20:20)
[2020-02-29] MEDS ORDERED: PRED20TA PO (20:30)
[2020-02-29] MEDS ORDERED: LOSA50TA3 PO (20:30)
[2020-02-29] MEDS ORDERED: FAMO20TA8 PO (20:30)
[2020-02-29] MEDS ORDERED: AMLO5TAB9 PO (20:30)
--- NOTE | 2020-02-29 21:03 | NUR ---
Patient stable and transferred to [facility] via ambulance [facility]. Patient belongings given to ambulance. Report given to Adry at the facility. Appiah intact and draining via gravity. Pt on 3L NC with O2 saturation at 97%.
== END 2020-02-29 21:05 | DRG 177 ==
LOC: ER 11:10 → UNDOADMIN 16:16 → TELE-TD3 16:16 → CCU 19:43 → TELE3 02-27 07:50
PROVIDERS: ADMIT Internal Medicine; ATTEND Internal Medicine
PROC: 5A09457 Assistance with Respiratory Ventilation, 24-96 Consecutive Hours, Continuous Positive Airway Pressure (ICD-10-PCS; principal; 2020-02-22)
PROC: 05HY33Z Insertion of Infusion Device into Upper Vein, Percutaneous Approach (ICD-10-PCS; 2020-02-25)
DX: U07.1 COVID-19 (principal); J96.02 Acute respiratory failure with hypercapnia; J96.01 Acute respiratory failure with hypoxia; J69.0 Pneumonitis due to inhalation of food and vomit; I71.01 Dissection of thoracic aorta; J15.9 Unspecified bacterial pneumonia; J12.89 Other viral pneumonia; E87.1 Hypo-osmolality and hyponatremia; G93.40 Encephalopathy, unspecified; N17.9 Acute kidney failure, unspecified; I50.30 Unspecified diastolic (congestive) heart failure; K62.5 Hemorrhage of anus and rectum; G47.33 Obstructive sleep apnea (adult) (pediatric); D69.6 Thrombocytopenia, unspecified; I16.0 Hypertensive urgency; I25.10 Atherosclerotic heart disease of native coronary artery without angina pectoris; E66.9 Obesity, unspecified; Z68.29 Body mass index [BMI] 29.0-29.9, adult; K21.9 Gastro-esophageal reflux disease without esophagitis; E78.5 Hyperlipidemia, unspecified; I11.0 Hypertensive heart disease with heart failure; F41.9 Anxiety disorder, unspecified; K44.9 Diaphragmatic hernia without obstruction or gangrene; Z86.19 Personal history of other infectious and parasitic diseases
CPT/HCPCS: 36415; 36600; 70030-TC; 71045; 83550; 83605; 83615; 83735; 84100; 84156; 84300; 84443; 84550; 85025; 85730; 86140; 87040; 87070; 87086; 93005; 93307; 94640; 94660; 94664; A4663; C9113; G0378; J1630; J1650; J1815; J1940; J2060; J2185; J2920; J2930; J3370; J3480; J3490; J3535; J3590; J7030; J7050; J7060; Q9967; U0003